=== PATIENT | male | born 1985 | race African-American/Black ===

== ENCOUNTER 2023-12-12 10:11 | Emergency (ER) | payer BC ==
[~2023-12-12] VITALS: Ht 175.3 cm; Wt 148.8 kg
[2023-12-12 10:38] VITALS: PULSE 86; RESP 17; TEMP 97.9
[2023-12-12 10:56] LABS: BASOPHILS % 0.2 % (0.0-1.0); EOSINOPHILS # (AUTO) 0.1 (0.0-0.4); EOSINOPHILS % 1.2 % (0.0-6.0); HEMOGLOBIN 15.8 g/dL (14.0-18.0); LYMPHOCYTES # (AUTO) 0.9 (1.0-3.2); LYMPHOCYTES % 11.3 % (18.0-39.1); MEAN CORPUSCULAR HEMOGLOBIN 29.6 pg (28-32); MEAN CORPUSCULAR HGB CONC 32.9 g/dL (31-35); MEAN CORPUSCULAR VOLUME 89.9 fL (81-99); MONOCYTES # (AUTO) 0.6 (0.2-0.8); MONOCYTES % 7.7 % (4.4-11.3); NEUTROPHILS # (AUTO) 6.5 (2.1-6.9); NEUTROPHILS % 79.4 % (38.7-80.0); PLATELET COUNT 180 x10e3/uL (140-360); RED BLOOD COUNT 5.34 x10e6/uL (4.3-5.7); RED CELL DISTRIBUTION WIDTH 13.2 % (11.7-14.4)
[2023-12-12] MEDS: ONDANSETRON HCL INJ 2MG/ML 2ML 2 MG/ML VIAL IV STA (11:00)
[2023-12-12] MEDS: SODIUM CHLORIDE 0.9% 1000ML 1,000 ML IV STA (11:01)
[2023-12-12 11:17] LABS: ALBUMIN 3.8 g/dL (3.5-5.0); ALBUMIN/GLOBULIN RATIO 1.1 (0.8-2.0); BILIRUBIN,TOTAL 0.7 mg/dL (0.2-1.2); CALCIUM 9.3 mg/dL (8.4-10.2); CREATININE, SERUM 1.09 mg/dL (0.72-1.25); MAGNESIUM 1.8 MG/DL (1.3-2.1); TOTAL PROTEIN 7.4 g/dL (6.5-8.1)
[2023-12-12 12:11] VITALS: BP 152/97; PULSE 76; RESP 17; TEMP 98.2; O2SAT 100
== END 2023-12-12 12:13 | disposition home or self-care (01) ==
LOC: ER 10:18
DX: R11.2 Nausea with vomiting, unspecified (principal); E11.65 Type 2 diabetes mellitus with hyperglycemia; I10 Essential (primary) hypertension; F17.210 Nicotine dependence, cigarettes, uncomplicated
CPT/HCPCS: 36415; 80053; 83735; 85025; 99283; J2405; J2470; J7030

== ENCOUNTER 2024-04-10 16:03 | Emergency (ER) | payer BC ==
[~2024-04-10] VITALS: Ht 175.3 cm; Wt 149.7 kg
[2024-04-10] MEDS: KETOROLAC TROMETHAMINE 60 MG/2 ML VIAL IM ONE (16:58)
[2024-04-10 17:07] VITALS: PULSE 85; RESP 16; TEMP 97.5; O2SAT 100
== END 2024-04-10 17:15 | disposition home or self-care (01) ==
LOC: ER 16:34
DX: M25.562 Pain in left knee (principal); X50.1XXA Overexertion from prolonged static or awkward postures, initial encounter; Y93.54 Activity, bowling; Y92.39 Other specified sports and athletic area as the place of occurrence of the external cause; I10 Essential (primary) hypertension; E11.9 Type 2 diabetes mellitus without complications
CPT/HCPCS: 99283